=== PATIENT | female | born 1950 | race Caucasian/White ===

== ENCOUNTER → 2016-11-16 | Outpatient (CLI) | payer OTHER ==
[~2016-11-16] MED LIST: ACET-1311 PO; ASPI81TA28 PO; LEVO75TA36 PO; NARA1TAB14 PO; PRM/45 PO; SIMV20TA2 PO
== END | disposition home or self-care (01) ==
LOC: C.LABBC 13:12
PROVIDERS: ATTEND Internal Medicine
DX: Z11.59 Encounter for screening for other viral diseases (principal)

== ENCOUNTER → 2017-04-05 | Outpatient (CLI) | payer OTHER ==
--- NOTE | 2017-04-05 11:34 | DIAGNOSTIC IMAGING REPORT ---
ABDOMEN LIMITED (US) CLINICAL HISTORY: 66 years-old Female presenting with ABD PAIN,ACUTE RIGHT UPPER QUADRANT. TECHNIQUE: Real-time grayscale ultrasound imaging of the abdomen limited to the right upper quadrant was performed. COMPARISON: 11/29/2011. FINDINGS: Pancreas: Visualized portions of the pancreatic head and body normal. Liver: Hyperechogenic parenchyma with heterogeneous echotexture, likely indicating fibrosis or steatosis. The liver measures 12 cm in maximal sagittal dimension. No sonographic evidence of hepatic mass. Biliary: No intrahepatic biliary ductal dilatation. Common bile duct measures up to 5 mm in diameter. Gallbladder: No evidence of gallstones, gallbladder wall thickening, gallbladder distention, or pericholecystic fluid or inflammatory change. Right kidney: Normal in appearance and size, measuring 10 cm. No hydronephrosis. Ascites: None. IMPRESSION: 1. Hyperechoic hepatic parenchyma with heterogeneous echotexture, likely indicating fibrosis or steatosis. 2. No evidence of cholelithiasis or cholecystitis. Electronically signed by: Librado Steel M.D. 04/05/2017 11:33 AM Dictated Date/Time: 04/05/2017 11:30 AM
== END | disposition home or self-care (01) ==
LOC: C.ULTRBC 10:41
PROVIDERS: ATTEND Physician Assistant
DX: R10.11 Right upper quadrant pain (principal)

== ENCOUNTER → 2017-05-14 | Outpatient (CLI) | payer OTHER ==
[2017-05-14 11:01] LABS: URINE APPEARANCE CLEAR (CLEAR); URINE BILIRUBIN NEG (NEG); URINE COLOR YELLOW; URINE NITRITE NEG (NEG); URINE PH >= 9.0 (4.5-7.5); URINE SPECIFIC GRAVITY 1.013 (1.000-1.030); UROBILINOGEN NEG (NEG)
[2017-05-14 11:04] LABS: MANUAL MICROSCOPIC REQUIRED? NO; REVIEW REQ? NO
[2017-05-14 11:23] LABS: ESTIMATED AVERAGE GLUCOSE 111 mg/dl; HA1C FLAG Normal (Normal)
[2017-05-14 11:27] LABS: ALB/GLOB RATIO 1.1 (0.9-2); ALKALINE PHOSPHATASE 80 U/L (45-117); ALT/SGPT 15 U/L (12-78); AST/SGOT 18 U/L (15-37); BLOOD UREA NITROGEN 6 mg/dl (7-18); BUN/CREATININE RATIO 6.8 (10-20); CALCIUM 8.3 mg/dl (8.5-10.1); CARBON DIOXIDE 29 mmol/L (21-32); CHLORIDE 108 mmol/L (98-107); CREATININE 0.91 mg/dl (0.60-1.20); GLUCOSE 92 mg/dl (70-99); HDL CHOLESTEROL 81 mg/dl; POTASSIUM 4.5 mmol/L (3.5-5.1); SODIUM 141 mmol/L (136-145)
[2017-05-14 11:39] LABS: CHOLESTEROL 153 mg/dl (0-200); CHOLESTEROL/HDL RATIO 1.9; LDL CHOLESTEROL CALCULATED 58 mg/dl; TRIGLYCERIDES 72 mg/dl (0-150); VERY LOW DENSITY LIPOPROT CALC 14 mg/dl
== END | disposition home or self-care (01) ==
LOC: C.LABBC 08:07
PROVIDERS: ATTEND Internal Medicine
DX: R79.9 Abnormal finding of blood chemistry, unspecified (principal); M85.80 Other specified disorders of bone density and structure, unspecified site

== ENCOUNTER → 2017-06-14 | Outpatient (CLI) | payer OTHER ==
--- NOTE | 2017-06-14 14:15 | MAMMOGRAPHY REPORT ---
BILATERAL DIGITAL SCREENING MAMMOGRAM TOMOSYNTHESIS WITH CAD: 06/14/2017 CLINICAL HISTORY: Routine screening. Patient has no complaints. TECHNIQUE: Breast tomosynthesis in addition to standard 2D mammography was performed. Current study was also evaluated with a Computer Aided Detection (CAD) system. COMPARISON: Comparison is made to exams dated: 06/10/2016 mammogram, 05/31/2015 mammogram, 05/30/2014 m ammogram, 05/29/2013 mammogram, 05/10/2012 mammogram, and 05/08/2011 mammogram - [facility] [address] BREAST COMPOSITION: There are scattered areas of fibroglandular density in both breasts. FINDINGS: There are minimal vascular calcifications in both breasts. No suspicious mass, architectu ral distortion or cluster of microcalcifications is seen. IMPRESSION: ACR BI-RADS CATEGORY 2: BENIGN There is no mammographic evidence of malignancy. A 1 year screening mammogram is recommended. The pa tient will receive written notification of the results. Approximately 10% of breast cancers are not detected with mammography. A negative mammographic report should not delay biopsy if a clinically suggestive mass is present. Taty Horne M.D. ay/:06/14/2017 09:44:01 Fisheries Technical Officer: Denisse GODDARD(Avis)(M), [facility] letter sent: Normal 1/2 BI-RADS Code: ACR BI-RADS Category 2: Benign
== END | disposition home or self-care (01) ==
LOC: C.MAMM 09:04
PROVIDERS: ATTEND Internal Medicine
DX: Z12.31 Encounter for screening mammogram for malignant neoplasm of breast (principal)

== ENCOUNTER 2017-07-01 20:45 | Emergency (ER) | payer OTHER ==
[~2017-07-01] VITALS: Ht 152.4 cm; Wt 68.5 kg
[2017-07-01 20:47] VITALS: TEMP 36.8; Ht 152.4 cm; Wt 68.5 kg
[2017-07-01] MEDS ORDERED: OXYCODONE/ACETAMINOPHEN 5-325 TAB PO STA (21:37)
[2017-07-01] MEDS ORDERED: ONDANSETRON 4MG OD TAB PO STA (21:37)
[2017-07-01] MEDS ORDERED: DOCUSATE SODIUM 100 MG CAP PO STA (21:37)
[2017-07-01] MEDS ORDERED: SENNA 8.6 MG TAB PO STA (21:37)
[2017-07-01] MEDS ORDERED: LIDODERM (LIDOCAINE) PATCH 5% TD STA (21:37)
[2017-07-01] MEDS ORDERED: PERCOCET HOME PACK PO ONE (21:45)
--- NOTE | 2017-07-01 22:19 | DIAGNOSTIC IMAGING REPORT ---
CT THORACIC SPINE WITHOUT CT DOSE: CLINICAL HISTORY: Thoracic spine pain. History of multiple fractures. TECHNIQUE: Helical images were acquired in the transverse plane. Coronal and sagittal reformatted images were acquired A dose lowering technique was utilized adhering to the principles of ALARA. COMPARISON STUDY: Conventional radiographic study dated 07/01/2016 FINDINGS: There are no paraspinal hematomas. There are multilevel degenerative changes. There is acute/subacute T9 fracture demonstrating 33% loss in height. There is no retropulsion. There is a mild acute/subacute superior endplate T8 fracture. This reveals approximate 20% loss in height. There is no retropulsion. The bones are osteopenic. There are no lytic destructive lesions. IMPRESSION: 1. Acute/subacute T9 fracture demonstrates 33% loss in height. There is no retropulsion 2. Acute/subacute superior endplate T8 fracture with approximately 20% loss in height. There is no retropulsion Electronically signed by: Vijay Sotomayor M.D. 07/01/2017 10:18 PM Dictated Date/Time: 07/01/2017 10:13 PM
--- NOTE | 2017-07-01 22:24 | EMERGENCY ROOM VISIT NOTE ---
History Report prepared by Poli: Jesusita Shipman Under the Supervision of: Dr. Ej Wan M.D. First contact with patient: 21:08 Chief Complaint: BACK PAIN Stated Complaint: UPPER BACK PAIN History of Present Illness The patient is a 67 year old female who presents to the Emergency Room with complaints of persistent back pain for the past 1 month. The pain is around her ribcage. The pain improves with standing and worsens with lying down. She is having difficulty sleeping due to the pain. She had an X-ray this morning which showed 4 fractured vertebrae. She was told to follow up with ortho and refrain from lying down and lifting. She took an Aleve at noon for her pain. She currently has a headache. She denies any loss of bowel or bladder control or numbness. She notes she has had difficulty walking on her heel for the past month. She has a history of osteoporosis in the hip. Source of History: patient Onset: 1 month ago Position: back Quality: other (pain) Timing: other (persistent) Modifying Factors (Worsening): other (lying down) Modifying Factors (Relieving): other (standing) Associated Symptoms: + headache, No numbness Note: Pt reports heel pain. Pt denies loss of bowel or bladder control. Review of Systems See HPI for pertinent positives & negatives. A total of 10 systems reviewed and were otherwise negative. Past Medical & Surgical Medical Problems: (1) Acute duodenal ulcer (2) Appendectomy (3) Diverticulitis (4) History of - hysterectomy (5) Hypercholesterolemia (6) Hypothyroidism Family History No pertinent family history stated. Social History Smoking Status: Never Smoker Drug Use: none Marital Status: Current/Historical Medications Scheduled Aspirin (Aspirin Ec), 81 MG PO DAILY Estrogens, Conjugated (Premarin), 0.45 MG PO DAILY Levothyroxine (Levothroid), 0.075 MG PO DAILY Naratriptan Hcl (Amerge), 2.5 MG PO PRN Simvastatin (Zocor), 20 MG PO QPM Scheduled PRN Oxycodone/Acetaminophen 5MG/325MG (Percocet 5MG/325MG), 1-2 TAB PO Q4H PRN for Pain Allergies Coded Allergies: Codeine (Verified Allergy, Mild, 07/01/17) Clarithromycin (Unverified Adverse Reaction, Unknown, VOMITS, 07/01/17) Metronidazole (Unverified Adverse Reaction, Unknown, VOMITS, 07/01/17) Sulfa Drugs (Unverified Adverse Reaction, Unknown, VOMITS, 07/01/17) Uncoded Allergies: [id number] (Allergy, Mild, 04/05/17) [id number] (Allergy, Unknown, VOMITS, 04/05/17) [id number] (Allergy, Unknown, VOMITS, 04/05/17) [id number] (Allergy, Unknown, VOMITS, 04/05/17) Physical Exam Vital Signs Date Time Temp Pulse Resp B/P (MAP) Pulse Ox O2 Delivery O2 Flow Rate FiO2 07/01/17 23:42 69 18 124/78 93 07/01/17 20:47 36.8 75 20 182/99 95 Room Air Physical Exam GENERAL: Patient is a healthy-appearing well-nourished female HEAD: Normocephalic atraumatic EYES: Ocular movements intact pupils equal and react to light OROPHARYNX mucous membranes are moist no exudates present no erythema or edema present NECK: Supple no nuchal rigidity CHEST: Good equal expansion LUNGS: Clear and equal to auscultation CARDIAC: Normal S1 and S2 ABDOMEN: Soft nontender no guarding BACK: No CVA tenderness. Tender in the midline to T8 and T9. Able to walk on tip toe and heels. No evidence of saddle anesthesia. No loss of bowel or bladder control. EXTREMITIES: No pain upon palpation normal muscle strength in all groups no clubbing cyanosis or edema NEURO: Patient is following commands and answering questions appropriately. Alert and oriented x3 Cranial Nerves 2-12 grossly intact Medical Decision & Procedures ER Provider Diagnostic Interpretation: X-ray results as stated below per interpretation by me and the radiologist. Radiology results as stated below per my review and radiologist interpretation: L FOOT MIN 3 VIEWS ROUTINE CLINICAL HISTORY: Left heel pain COMPARISON: None. DISCUSSION: There is a tiny plantar calcaneal spur. No fractures are visualized. There are no erosive or destructive changes. There are minimal degenerative changes the level the first metatarsal phalangeal joint. IMPRESSION: 1. No acute fractures 2. Tiny plantar calcaneal spur Electronically signed by: Vijay Sotomayor M.D. 07/01/2017 10:44 PM Dictated Date/Time: 07/01/2017 10:[address] LUMBAR SPINE WITHOUT CT DOSE: 1118.13 mGy.cm CLINICAL HISTORY: Lumbar spine pain. History of fractures. TECHNIQUE: Helical images were acquired in transverse plane. Reformatted sagittal and coronal images were reviewed. A dose lowering technique was utilized adhering to the principles of ALARA. CONTRAST: No contrast was administered COMPARISON STUDY: Conventional radiographic study dated 07/01/2017 FINDINGS: L1-2 level: There is no evidence of significant disc bulge or focal herniation. There is no evidence of spinal or foraminal stenosis. L2-3 level: There is no evidence of significant disc bulge or focal herniation. There is no evidence of spinal or foraminal stenosis. L3-4 level: There is no evidence of significant disc bulge or focal herniation. There is no evidence of spinal or foraminal stenosis. L4-5 level: There is no evidence of significant disc bulge or focal herniation. There is no evidence of spinal or foraminal stenosis. L5-S1 level: There is marked disc desiccation. There are no focal herniations identified. There is no significant spinal or foraminal stenosis. No acute fractures or subluxations are visualized. Small ossicles at the level of the anterior superior L2 and L3 endplates are felt to be old. IMPRESSION: 1. No acute fractures or traumatic subluxations identified. 2. No disc herniations identified. No evidence of spinal stenosis. Electronically signed by: Vijay Sotomayor M.D. 07/01/2017 10:23 PM Dictated Date/Time: 07/01/2017 10:[address] THOR[address]IC SPINE WITHOUT CT DOSE: CLINICAL HISTORY: Thoracic spine pain. History of multiple fractures. TECHNIQUE: Helical images were acquired in the transverse plane. Coronal and sagittal reformatted images were acquired A dose lowering technique was utilized adhering to the principles of ALARA. COMPARISON STUDY: Conventional radiographic study dated 07/01/2016 FINDINGS: There are no paraspinal hematomas. There are multilevel degenerative changes. There is acute/subacute T9 fracture demonstrating 33% loss in height. There is no retropulsion. There is a mild acute/subacute superior endplate T8 fracture. This reveals approximate 20% loss in height. There is no retropulsion. The bones are osteopenic. There are no lytic destructive lesions. IMPRESSION: 1. Acute/subacute T9 fracture demonstrates 33% loss in height. There is no retropulsion 2. Acute/subacute superior endplate T8 fracture with approximately 20% loss in height. There is no retropulsion Electronically signed by: Vijay Sotomayor M.D. 07/01/2017 10:18 PM Dictated Date/Time: 07/01/2017 10:13 PM Medications Administered Medications (Trade) Dose Ordered Sig/Chantal Route Start Time Stop Time Status Last Admin Dose Admin Oxycodone/ Acetaminophen (Percocet 5-325mg Tab) 2 tab NOW STAT PO 07/01/17 21:37 07/01/17 21:40 DC 07/01/17 21:52 2 TAB Ondansetron HCl (Zofran Odt) 4 mg ONE STAT PO 07/01/17 21:37 07/01/17 21:40 DC 07/01/17 21:51 4 MG Senna (Senokot Tab) 17.2 mg NOW STAT PO 07/01/17 21:37 07/01/17 21:40 DC 07/01/17 21:52 17.2 MG Docusate Sodium (coLACE CAP) 100 mg NOW STAT PO 07/01/17 21:37 07/01/17 21:40 DC 07/01/17 21:52 100 MG ED Course 2128: Past medical records reviewed. The patient was evaluated in room C8. A complete history and physical examination was performed. 7: coLACE Cap 100 mg PO, Senna 17.2 mg PO, Zofran Odt 4 mg PO, Oxycodone/ Acetaminophen 2 tab PO. 2322: Upon reexamination the patient is resting comfortably. I discussed results and treatment plan with the patient. She verbalizes agreement and understanding. The patient is ready for discharge. Medical Decision Differential diagnosis: Etiologies such as musculoskeletal, disc herniation, fracture, aortic disease, metastatic disease, cord compression, discitis, infection, renal colic, gastrointestinal, acute exacerbation of chronic back pain, sciatica, cauda equina, as well as others were entertained. This is a 67-year-old female who presents emergency department complaining of back pain. The patient was told by her primary care physician today that she has vertebral compression fractures. I will note that the patient is neurologically intact on physical examination. She was sent for a CAT scan of her C-spine. This was concerning for compression fractures at T8 and T9. While in the emergency department the patient's pain was controlled by Percocet. The patient was also complaining for pain in her foot however do not see any evidence of fracture dislocation. I strongly recommended that the patient follow-up with orthopedics. Patient and were in agreement with the treatment plan. Medication Reconcilliation Current Medication List: was personally reviewed by me Blood Pressure Screening Patient's blood pressure: Normal blood pressure Blood pressure disposition: Did not require urgent referral Impression Primary Impression: Compression fracture Scribe Attestation The scribe's documentation has been prepared under my direction and personally reviewed by me in its entirety. I confirm that the note above accurately reflects all work, treatment, procedures, and medical decision making performed by me. Departure Information Dispostion Home / Self-Care Prescriptions Oxycodone/Acetaminophen 5MG/325MG (PERCOCET 5MG/325MG) Tab 1-2 TAB PO Q4H Y for Pain, #14 TAB Prov: Ej Wan MD 07/01/17 Referrals Librado Obrien M.D. (PCP) Antoine Barker, DO Forms HOME CARE DOCUMENTATION FORM, IMPORTANT VISIT INFORMATION Patient Instructions ED Fx Comp Vertebral, My [facility] Additional Instructions Follow up with Dr Barker's office You were found to have an elevated blood pressure today (>120 sytolic or >90 diastolic). Per medicare guidelines, you need to follow up with this blood pressure screening with your Primary Care Physician (PCP). For a new PCP call [phone]. You received narcotic or benzodiazepene medication while in the emergency room today. This is an addictive medication that may cause drowziness as well as constipation. Do not drive, operate heavy machinery, or drink alcohol under the influence of this medication. Take 600 mg Ibuprofen every 6 hours Take Percocet for breakthrough pain You have been examined and treated today on an emergency basis only. This is not a substitute for, or an effort to provide, complete comprehensive medical care. It is impossible to recognize and treat all injuries or illnesses in a single emergency department visit. It is therefore important that you follow up closely with Dr Obrien. Call as soon as possible for an appointment. Thank you for your time and consideration. I look forward to speaking with you again soon. Please don't hesitate to call us if you have any questions.
--- NOTE | 2017-07-01 22:45 | DIAGNOSTIC IMAGING REPORT ---
L FOOT MIN 3 VIEWS ROUTINE CLINICAL HISTORY: Left heel pain COMPARISON: None. DISCUSSION: There is a tiny plantar calcaneal spur. No fractures are visualized. There are no erosive or destructive changes. There are minimal degenerative changes the level the first metatarsal phalangeal joint. IMPRESSION: 1. No acute fractures 2. Tiny plantar calcaneal spur Electronically signed by: Vijay Sotomayor M.D. 07/01/2017 10:44 PM Dictated Date/Time: 07/01/2017 10:43 PM
[2017-07-01] MEDS ORDERED: OXYC-57 PO (23:30)
[2017-07-01 23:42] VITALS: BP 124/78; PULSE 69; O2SAT 93
== END 2017-07-01 23:40 | disposition home or self-care (01) ==
LOC: C.EDB 20:45 → C.EDC 23:40
DX: M48.54XA Collapsed vertebra, not elsewhere classified, thoracic region, initial encounter for fracture (principal); M81.0 Age-related osteoporosis without current pathological fracture; E78.00 Pure hypercholesterolemia, unspecified; E03.9 Hypothyroidism, unspecified; Z79.82 Long term (current) use of aspirin; Z79.899 Other long term (current) drug therapy; M54.9 Dorsalgia, unspecified; R07.81 Pleurodynia

== ENCOUNTER → 2017-09-07 | Outpatient (CLI) | payer OTHER ==
[~2017-09-07] MED LIST changes: -ACET-1311 PO; +OPTIRAY 320 IV PRN; +OXYC-57 PO
--- NOTE | 2017-09-07 12:12 | DIAGNOSTIC IMAGING REPORT ---
CT ABD/PELVIS IV AND ORAL CONT CLINICAL HISTORY: Generalized abdominal pain COMPARISON STUDY: 11/09/2012 TECHNIQUE: Following the IV administration of 92 mL of Optiray-320, CT scan of the abdomen and pelvis was performed from the lung bases to the proximal femurs. Images are reviewed in the axial, sagittal, and coronal planes. IV contrast was administered without complication. A dose lowering technique was utilized adhering to the principles of ALARA. CT DOSE: 518.81 mGy.cm FINDINGS: Lower chest: The heart is normal in size and configuration, without pericardial effusion. The lung bases and pleural spaces are clear. Liver: There is mild hepatic steatosis. No focal masses are visualized. Gallbladder: Unremarkable. Spleen: Normal in size and attenuation. Pancreas: Unremarkable. Adrenal glands: Unremarkable. Kidneys: There is symmetric renal cortical enhancement. The kidneys are normal in size without hydronephrosis. Bowel: There are no transition zones indicate bowel obstruction. There is colonic diverticulosis. There are no acute peridiverticular inflammatory changes. By history the appendix is surgically absent. Peritoneum: There is no intraperitoneal free air or abdominal ascites. There are postsurgical changes of bilateral inguinal hernia repairs. Vasculature: The abdominal aorta is normal in course and caliber. Adenopathy: None. Pelvic viscera: The uterus is surgically absent. Skeletal structures: No destructive osseous lesions are seen. There is bilateral symphysis pubis sclerosis, likely chronic stress related basis. IMPRESSION: 1. No acute intra-abdominal or pelvic findings 2. No evidence of bowel obstruction. No evidence of free air 3. No acute inflammatory changes 4. No CT evidence of recurrent hernia. Electronically signed by: Vijay Sotomayor M.D. 09/07/2017 12:10 PM Dictated Date/Time: 09/07/2017 12:07 PM
== END | disposition home or self-care (01) ==
LOC: C.CTS 09:54
PROVIDERS: ATTEND Orthopaedic Surgery Orthopaedic Surgery of the Spine
DX: R10.9 Unspecified abdominal pain (principal)

== ENCOUNTER → 2017-09-13 | Outpatient (CLI) | payer OTHER ==
[~2017-09-13] MED LIST changes: -OPTIRAY 320 IV PRN
[2017-09-13 13:51] LABS: BLOOD UREA NITROGEN 11 mg/dl (7-18); CREATININE 0.86 mg/dl (0.60-1.20)
== END | disposition home or self-care (01) ==
LOC: C.LABBC 09:32
PROVIDERS: ATTEND Physician Assistant Medical
DX: Z01.812 Encounter for preprocedural laboratory examination (principal)

== ENCOUNTER → 2017-09-17 | Outpatient (CLI) | payer OTHER ==
[~2017-09-17] MED LIST changes: +GADAVIST IV PRN
--- NOTE | 2017-09-17 09:08 | DIAGNOSTIC IMAGING REPORT ---
BONY ORBITS 3 VIEWS CLINICAL HISTORY: MRI clearance. FINDINGS: 3 views of the bony orbits are obtained. No prior studies are available for comparison at the time of dictation. There is no radiodense/metallic foreign body seen in the region of the bony orbits. The bony orbits are intact as imaged. The visualized paranasal sinuses and the mastoid air cells appear clear. The imaged calvarium appears intact. Dental hardware is noted. IMPRESSION: There is no radiodense/metallic foreign body seen in the region of the bony orbits. Electronically signed by: Gurjit Rashid M.D. 09/17/2017 9:07 AM Dictated Date/Time: 09/17/2017 9:06 AM
--- NOTE | 2017-09-17 10:29 | DIAGNOSTIC IMAGING REPORT ---
MRI OF THE THORACIC SPINE WITHOUT CONTRAST CLINICAL HISTORY: Back pain. Bilateral leg paresthesias. Vertebral compression fracture. COMPARISON: Thoracic spine radiographs and thoracic spine CT July 01, 2017. TECHNIQUE: Utilizing a 1.5 Yuki magnet and dedicated coil, multiplanar, multiecho imaging of the thoracic spine was performed without IV contrast. FINDINGS: The thoracic spine is anatomic. There is a compression fracture along the inferior endplate of T9 as shown on CT of July 01, 2017. The appearance is similar to prior exam with 40% loss of vertebral body height. There is no retropulsion. There is minimal associated marrow edema. There is an old mild T8 compression fracture. No acute thoracic spine fracture is identified. Thoracic cord signal and caliber are normal. There is no intracanalicular mass or fluid collection. Paravertebral soft tissues are unremarkable. There is no suspicious marrow replacement. IMPRESSION: 1. No acute thoracic spine compression fracture. 2. Moderate compression fracture of T9, as shown on CT of July 01, 2017. This represents a subacute to chronic fracture. 3. Old T8 compression fracture. 4. Minimal multilevel degenerative changes of the thoracic spine. Electronically signed by: Malcolm Palma M.D. 09/17/2017 10:28 AM Dictated Date/Time: 09/17/2017 10:20 AM
--- NOTE | 2017-09-17 11:00 | DIAGNOSTIC IMAGING REPORT ---
MRI THE PELVIS WITHOUT A WITH GADOLINIUM CLINICAL HISTORY: BACK PAIN, BILATERAL LEG PARESTHESIA COMPARISON STUDY: MRI the lumbar spine dated 07/01/2017 FINDINGS: There is no pathologic marrow replacement. There are no findings to indicate occult fracture. There is no evidence of sacroiliitis. No sacral plexus masses are visualized. There is an L5-S1 disc bulge. Equivocal mild rectosigmoid wall thickening, is likely secondary to a nondistended bowel. IMPRESSION: 1. Mild L5-S1 disc bulge 2. No sacral plexus masses are visualized. 3. No evidence of occult sacral fracture or pathologic marrow replacement Electronically signed by: Vijay Sotomayor M.D. 09/17/2017 10:59 AM Dictated Date/Time: 09/17/2017 10:55 AM
== END | disposition home or self-care (01) ==
LOC: C.MRIBC 07:40
PROVIDERS: ATTEND Physician Assistant Medical
DX: M54.9 Dorsalgia, unspecified (principal); R20.2 Paresthesia of skin; S22.070A Wedge compression fracture of T9-T10 vertebra, initial encounter for closed fracture; X58.XXXA Exposure to other specified factors, initial encounter